=== PATIENT | female | born 1970 | race Caucasian/White ===

== ENCOUNTER 2018-06-20 09:27 | Emergency (ER) | payer SELFPAY ==
[2018-06-20 09:32] VITALS: BP 108/88
--- NOTE | 2018-06-20 10:11 | ER Document Report ---
HPI - HPI Time Seen by Provider: 06/20/18 09:58 Pain Level: 5 Notes: Patient is a 48-year-old female who presents with chief complaint of nasal congestion, productive cough with green sputum and bilateral ear pain. She also reports body aches and possible fevers. She states all her symptoms have been going on for 3 days. She has tried taking [id number] medication with minimal relief. - CONSTITUTIONAL Constitutional: REPORTS: Chills - EENT EENT: REPORTS: Ear Pain - bilateral, Eye problems - eye drainage - RESPIRATORY Respiratory: REPORTS: Coughing Past Medical History - General Information source: Patient - Social History Smoking Status: Current Every Day Smoker Frequency of alcohol use: None Drug Abuse: None Family History: Arthritis, CVA, DM, Hyperlipidemia, Hypertension, Malignancy Patient has suicidal ideation: No Patient has homicidal ideation: No - Past Medical History Cardiac Medical History: Reports: Hx Hypercholesterolemia Endocrine Medical History: Reports: Hx Diabetes Mellitus Type 2 - prediabetes Renal/ Medical History: Reports: Hx Ovarian Cysts. Denies: Hx Peritoneal Dialysis GI Medical History: Reports: Hx Irritable Bowel, Hx Colonoscopy, Hx Endoscopy Musculoskeletal Medical History: Reports Hx Musculoskeletal Deformity, Reports Hx Musculoskeletal Trauma Past Surgical History: Reports: Hx Section - X2, Hx Cholecystectomy, Hx Hysterectomy - partial - Immunizations Immunizations up to date: Yes Hx Diphtheria, Pertussis, Tetanus Vaccination: Yes Vertical Provider Document - CONSTITUTIONAL Notes: PHYSICAL EXAMINATION: GENERAL: Well-appearing, well-nourished and in no acute distress. HEAD: Atraumatic, normocephalic. EYES: Pupils equal round extraocular movements intact, conjunctiva are normal. ENT: Nares patent, bilateral tympanic membranes bright red and bulging. NECK: Normal range of motion LUNGS: No respiratory distress lung sounds clear to auscultation bilaterally., Musculoskeletal: Normal range of motion NEUROLOGICAL: Normal speech, normal gait. PSYCH: Normal mood, normal affect. SKIN: Warm, Dry, normal turgor, no rashes or lesions noted. - INFECTION CONTROL TRAVEL OUTSIDE OF THE [place] IN LAST 30 DAYS: No Course - Re-evaluation Re-evalutation: Examination is consistent with acute otitis media bilaterally. Patient was placed on amoxicillin and discharged home in stable condition. - Vital Signs Vital signs: Temp Pulse Resp BP Pulse Ox 97.7 F 72 18 108/88 H 97 06/20/18 09:31 11/30/18 09:31 06/20/18 09:31 06/20/18 09:31 06/20/18 09:31 Discharge - Discharge Clinical Impression: Nasal congestion Otitis media Qualifiers: Otitis media type: unspecified Chronicity: acute Qualified Code(s): H66.90 - Otitis media, unspecified, unspecified ear Condition: Stable Disposition: HOME, SELF-CARE Additional Instructions: OTITIS MEDIA: You have a middle ear infection (otitis media). This is usually a complication of a cold or sore throat. The middle ear cavity becomes filled with infection. Pressure and stretching of the ear drum cause pain. Antibiotics are required. A 10 day course is usually prescribed. A decongestant may be recommended if you have a "runny nose." You may need anesthetic drops or other pain medication. A follow-up exam may be recommended to make sure the infection has completely cleared. If the ear begins to drain, it means the ear drum has ruptured. This will usually heal spontaneously. However, it means you should keep the ear dry until re-examined by a doctor. Call the physician or return for examination at once if there is severe headache, stiff neck, confusion, increasing fever, or dizziness. You should improve significantly within two days. If you're not better, call the doctor. AMOXICILLIN: Amoxicillin is a member of the penicillin family. It covers the germs likely to cause ear, bronchial, and urinary infections better than plain penicillin. Amoxicillin can be taken without regard to meals. Nausea after taking the medication is rare, but can occur. Diarrhea can occur, particularly in small children. Vaginal yeast infections and oral thrush in infants are also common. Contact your physician if these problems occur. Allergy to penicillins is common. If you have had an allergic reaction to any drug of the penicillin family, you should never take any other penicillin. Notify your doctor at once if you develop hives, itching, swelling, faintness, or shortness of breath. Less serious side effects can include nausea or diarrhea. FOLLOW-UP CARE: If you have been referred to a physician for follow-up care, call the physician s office for an appointment as you were instructed or within the next two days. If you experience worsening or a significant change in your symptoms, notify the physician immediately or return to the Emergency Department at any time for re-evaluation. Please take either acetaminophen or ibuprofen for pain. Take the amoxicillin as directed. Use the Flonase as prescribed. Return to the emergency department if you develop worsening symptoms or develop shortness of breath or any worrisome symptoms to you. Prescriptions: Amoxicillin 1 tab PO TID #30 tab Fluticasone Propionate [Flonase Nasal Webster 50 Mcg/Webster 16 gm] 2 sprays NASL Q12 #1 inhaler Forms: Return to Work
== END 2018-06-20 10:30 | disposition home or self-care (01) ==
LOC: ER 09:27
DX: H66.90 Otitis media, unspecified, unspecified ear (principal); R09.81 Nasal congestion; R05 Cough; F17.200 Nicotine dependence, unspecified, uncomplicated; E78.00 Pure hypercholesterolemia, unspecified; Z90.49 Acquired absence of other specified parts of digestive tract; Z90.710 Acquired absence of both cervix and uterus
CPT/HCPCS: 99283